=== PATIENT | female | born 1980 | race Caucasian/White ===

== ENCOUNTER 2017-07-04 10:43 | Emergency (ER) | payer MEDICAID ==
[2017-07-04 10:52] VITALS: BP 111/71
--- NOTE | 2017-07-04 11:31 | DR.GENAD ---
HPI - PCP Primary Care Physician: TAMMY - HPI Comment HPI Comment: PATIENT HAVE LOWER BACK PAIN RADIATING TO LOWER EXTREMITIES. NO TRAUMA OR DYSURIA. NO FEVER. SHARP PAIN THAT STARTED YESTERDAY - Complaint/Symptoms Chief Complaint Doctors Comments: PATIENT HAVE LOWER BACK PAIN. Chief Complaint:: BACK PAIN STARTED YESTERDAY MORNING ABOUT 8AM, WITH SHOOTING PAINS DOWN LEGS. PT STATES IT IS MAINLY HER LOWER BACK WITH SHARP PAIN - Nurses notes reviewed Nurses Notes Review: Yes - Source History Provided: Patient - Mode of Arrival Mode of Arrival: Ambulatory - Timing Onset of Chief Complaint: 07/03/17 Came on: Suddenly - Duration Duration: Constant Duration: Days - Severity Severity: Moderate PMH - PMH Past Medical History: Yes Past Medical History: Anxiety Past Surgical History: Yes Surgical History: Appendectomy, - Family History History of Family Medical Conditions: Yes Family Medical History: Coronary Artery Disease - Social History Does patient currently use any type of tobacco product: Yes Have you used tobacco products in the last 12 months: Yes Type of Tobacco Use: Cigarettes How many years tobacco product used: 20 Does any household member use tobacco: No Alcohol Use: Rarely Do you use any recreational Drugs:: No Lives With: Spouse Lives Where: Home - infectious screening In the last 2 months have you had wt loss of >10#?: NO Have you had fever, night sweats or hemotysis?: No Have you traveled outside the country in the last 6 months?: No Isolation: Standard ROS - Review of Systems Constitutional: No Symptoms Reported Eyes: No Symptoms Reported ENTM: No Symptoms Reported Respiratoy: No Symptoms Reported Cardiovascular: No Symptoms Reported Gastrointestinal/Abdominal: No Symptoms Reported Genitourinary: No Symptoms Reported. negative: Dysuria, Frequency, Hematuria Neurological: No Symptoms Reported Musculoskeletal: Back Pain, Muscle Pain, Back (LOWER BACK) Integumentary: No Symptoms Reported Hematologic/Lymphatic: No Symptoms Reported Endocrine: No Symptoms Reported All Other Systems: Reviewed and Negative PE - Vital Signs Vitals: Temperature 97.5 F Pulse Rate 64 Respiratory Rate 20 Blood Pressure [Left Arm] 120/72 Blood Pressure 111/71 O2 Sat by Pulse Oximetry 97 - General Limitations: No Limitations General Appearance: Alert - Head Head Exam: Normal Inspection - Eyes Eye exam: Normal Appearance - ENT ENT Exam: Normal External Ear Exam External Ear Exam: Normal External Inspection TM/Canal Exam: Bilateral Normal Nose Exam: Normal Nose Exam Mouth Exam: Normal Inspection Throat Exam: Normal Inspection - Neck Neck Exam: Trachea Midline - Chest Chest Inspection: Symmetric Chest Wall Rise - Respiratory Respiratory Exam: Normal Lung Sounds Bilat Respiratory Exam: Bilateral Clear to Auscultation - Cardiovascular Cardiovascular Exam: Regular Rate, Normal Rhythm, Normal Heart Sounds - Abdominal Exam Abdominal Exam: Normal Inspection - Extremities Extremities Exam: Normal Inspection - Back Back Exam: Paraspinal Tenderness (LOWER BACK) - Psychiatric Psychiatric Exam: Normal Affect, Normal Mood - Skin Skin Exam: Normal Color MDM - Differential Diagnosis Differential Diagnosis: FRACTURE, SPRAIN, STRAIN Course - Treatment Treatment: SEE ORDERS. - Education/Counseling Education/Counseling: Patient, Education Educated On: Diagnosis, Needs for Follow Up ROR - Labs Reviewed Laboratory: Specimen Type Clean catch urine 07/04/17 11:44 Urine Color Dark yellow (YELLOW) 07/04/17 11:44 Urine Appearance Clear (CLEAR) 07/04/17 11:44 Urine pH 5.0 (5.0 - 8.0) 07/04/17 11:44 Ur Specific [place] 1.030 (1.000-1.030) 07/04/17 11:44 Urine Protein 1+ (NEGATIVE) 07/04/17 11:44 Urine Glucose (UA) Negative (NEGATIVE) 07/04/17 11:44 Urine Ketones Negative (NEGATIVE) 07/04/17 11:44 Urine Occult Blood 4+ (NEGATIVE) 07/04/17 11:44 Urine Nitrite Negative (NEGATIVE) 07/04/17 11:44 Urine Bilirubin Negative (NEGATIVE) 07/04/17 11:44 Urine Urobilinogen Normal (NORMAL) 07/04/17 11:44 Ur Leukocyte Esterase Negative (NEGATIVE) 07/04/17 11:44 Urine RBC 8-15 /HPF (NEGATIVE) 07/04/17 11:44 Urine WBC 0-1 /HPF (NEGATIVE) 07/04/17 11:44 Ur Squamous Epith Cells Moderate /HPF (NEGATIVE) 07/04/17 11:44 Urine Bacteria Trace /HPF (NEGATIVE) 07/04/17 11:44 Urine Mucus Numerous /HPF (NEGATIVE) 07/04/17 11:44 Ur Culture Indicated? No/not indicated 07/04/17 11:44 - XRAY XRAY Interpreted by: Radiologist XRAY Findings: REPORT DISCUSS WITH PATIENT. - Diagnosis Discharge Problem: Low back pain Qualifiers: Chronicity: acute Back pain laterality: bilateral Sciatica presence: with sciatica Sciatica laterality: bilateral sciatica Qualified Code(s): M54.42 - Lumbago with sciatica, left side; M54.41 - Lumbago with sciatica, right side - Discharge Plan Disposition: 01 HOME, SELF-CARE Condition: Stable Prescriptions: Cyclobenzaprine HCl [FLEXERIL 10 MG *] 10 mg PO TID #20 tab Ibuprofen [MOTRIN TAB 800 MG *] 800 mg PO BID PRN #20 tab PRN Reason: Pain/Inflammation - Follow ups/Referrals Follow ups/Referrals: [facility],None [Primary Care Provider] - 3 days JOSE ELIAS COULTER [STAFF PHYSICIAN] - 3 days - Instructions Instructions: Back Pain, Adult, [id number] Additional Instructions: RETURN TO ED IF WORSE
[2017-07-04] MEDS ORDERED: NORFLEX INJ IM PRN (11:32)
[2017-07-04] MEDS ORDERED: TORADOL 60 MG VIAL IM ONE (11:32)
[2017-07-04] MEDS ORDERED: TORADOL 60 MG VIAL ONE (11:35)
[2017-07-04 12:11] LABS: BILIRUBIN,URINE NEGATIVE (NEGATIVE); BLOOD/HEMOGLOBIN,URINE 4+ (NEGATIVE); GLUCOSE, URINE NEGATIVE (NEGATIVE); KETONES,URINE NEGATIVE (NEGATIVE); LEUKOCYTE ESTERASE ,URINE NEGATIVE (NEGATIVE); NITRITES,URINE NEGATIVE (NEGATIVE); PROTEIN,URINE 1+ (NEGATIVE); UROBILINOGEN,URINE NORMAL (NORMAL)
[2017-07-04 12:18] LABS: APPEARANCE,URINE CLEAR (CLEAR); BACTERIA,URINE TRACE /HPF (NEGATIVE); COLOR,URINE DARK YELLOW (YELLOW); MUCUS,URINE NUMEROUS /HPF (NEGATIVE); SQUAMOUS EPITHELIAL CELL,UR MODERATE /HPF (NEGATIVE)
--- NOTE | 2017-07-04 12:48 | RAD ---
HISTORY: Low back pain, nontraumatic Study: Lumbar spine AP, lateral, spot, both obliques Comparison: None Findings: Normal alignment of the lumbar spine is maintained. The posterior elements appear unremarkable in th eir appearance. The disk space height is maintained without significant endplate sclerosis. No evid ence for acute fracture can be identified. No spondylolysis or spondylolisthesis is identified. The S I joints are normal. IMPRESSION: 1. Negative exam. Reported By:
== END 2017-07-04 13:14 | disposition home or self-care (01) ==
LOC: ER 11:00
DX: M54.42 Lumbago with sciatica, left side (principal); M54.41 Lumbago with sciatica, right side
CPT/HCPCS: 72110; 81001; 96372; 99282; 99283; J1885

== ENCOUNTER → 2017-08-06 | Outpatient (CLI) | payer MEDICAID ==
--- NOTE | 2017-08-08 16:28 | MRI ---
HISTORY: Low back and leg pain Study: MRI lumbar spine without contrast Comparison: None Technique: Multiplanar multi-sequence MRI of the lumbar spine was obtained. Sagittal T1, sagittal T2 , and stir weighted images, axial T1, and axial T2 images were obtained. Findings: The lumbar spine demonstrates normal alignment with the expected signal characteristics of the bone m arrow. The conus of the cord terminates normally. Mild degenerative disc changes are noted at L4 thr ough S1. Visualized portions of the soft tissues are unremarkable. T12 -- L1: Unremarkable L1 -- L2: Unremarkable L2 -- L3: Unremarkable L3 -- L4: Mild facet hypertrophy with no significant stenosis L4 -- L5: Broad-based disc ridging and facet/ligament hypertrophy causing mild central canal stenosis and bilateral neural foraminal narrowing L5 -- S1: Mild disc ridging with no significant stenosis IMPRESSION: Mild degenerative changes as above with no significant stenosis. Reported By:
== END ==
LOC: RAD 09:36
PROVIDERS: ATTEND Internal Medicine
DX: M54.5 Low back pain (principal); M79.606 Pain in leg, unspecified
CPT/HCPCS: 72148